=== PATIENT | female | born 1975 | race Caucasian/White ===

== ENCOUNTER → 2021-04-27 11:54 | Outpatient (CLI) | payer MEDICARE, MEDICAID, SELFPAY ==
--- NOTE | 2021-04-27 | DI.MG.S_ITS ---
UNILATERAL LEFT DIGITAL DIAGNOSTIC MAMMOGRAM 3D/2D WITH ADDITIONAL VIEWS: 04/27/2021 CLINICAL: Additional evaluation requested from prior study. Comparison is made to exam dated: 02/22/2021 mammogram - [facility]. There are scattered fibroglandular elements in left breast. There is a 0.7 cm oval equal density focal asymmetry in the left breast at 4 o'clock posterior depth. This is seen in additional views. No other significant masses or calcifications are seen in the breast. IMPRESSION: INCOMPLETE: NEEDS ADDITIONAL IMAGING EVALUATION The 0.7 cm oval equal density focal asymmetry in the left breast is indeterminate. An ultrasound is recommended. This exam was interpreted at Station ID: [id number]. NOTE: For mammograms, a report in lay terms will be sent to the patient. Approximately 15% of breast malignancies will not be visualized mammographically. In the management of a palpable breast mass, a negative mammogram must not discourage biopsy of a clinically suspicious lesion. Electronically Signed By: Carlos lozada/leroy:04/27/2021 15:21:29 ACR BI-RADS Category 0: Incomplete [id number]
--- NOTE | 2021-04-27 | DI.US.S_ITS ---
LIMITED ULTRASOUND OF LEFT BREAST: 04/27/2021 CLINICAL: Patient returns today to evaluate an asymmetry in the left breast. Comparison is made to exams dated: 04/27/2021 mammogram - [facility] and 02/22/2021 mammogram - [facility]. Color flow and continuous wave Doppler ultrasound of the left breast 4 o'clock region were performed. There is a benign 0.7 cm x 0.7 cm x 0.6 cm oval lymph node with a circumscribed margin in the left breast at 4 o'clock posterior depth 7 cm from the nipple. This oval lymph node is hypoechoic with fatty hilum. This correlates with mammography findings. IMPRESSION: BENIGN There is no sonographic evidence of malignancy. The 0.7 cm x 0.7 cm x 0.6 cm oval lymph node in the left breast is benign. Return to annual mammogram screening schedule is recommended. This exam was interpreted at Station ID: [id number]. Electronically Signed By: Carlos lozada/leroy:04/27/2021 15:23:08 letter sent: Normal Exam Ultrasound BI-RADS: 2 Benign
== END ==
PROVIDERS: Referring Provider Obstetrics & Gynecology; Visit Provider Obstetrics & Gynecology
DX: R92.8 Other abnormal and inconclusive findings on diagnostic imaging of breast (principal)
CPT/HCPCS: 76642; 77065; G0279

== ENCOUNTER → 2021-06-24 15:14 | Outpatient (CLI) | payer MEDICARE, MEDICAID, SELFPAY ==
--- NOTE | 2021-06-24 | DI.US.S_ITS ---
ULTRASOUND OF LEFT BREAST AND AXILLA: 06/24/2021 CLINICAL: Palpable left axilla lump. Comparison is made to exams dated: 04/27/2021 ultrasound, 04/27/2021 mammogram - [facility], and 02/22/2021 mammogram - [facility]. Color flow and real-time ultrasound of the left breast axilla were performed. Zimmerman scale images of the real-time examination were reviewed. There is a 2.4 cm x 0.8 cm x 0.7 cm oval normal lymph node with a circumscribed margin in the left axillary tail. This oval normal lymph node displays fatty hilum. This correlates as palpated. Color flow imaging demonstrates that there is an adjacent vascularity. Adjacent smaller node which is also benign appearing. IMPRESSION: BENIGN There is no sonographic evidence of malignancy. Benign appearing left axillary lymph nodes in the region of the palpable abnormality. Exam findings were conveyed to the patient. Patient is advised to monitor for significant change. Clinical follow-up as needed. A 1 year screening mammogram is recommended. 02/23/2022 screening mammogram. This exam was interpreted at Station ID: [id number]. Electronically Signed By: Anup Mclaughlin M.D. slc/:06/24/2021 16:20:49 letter sent: Normal Exam Ultrasound BI-RADS: 2 Benign
== END ==
PROVIDERS: PCP Family Medicine; Referring Provider Family Medicine; Visit Provider Family Medicine
DX: R59.0 Localized enlarged lymph nodes (principal)
CPT/HCPCS: 76882

== ENCOUNTER → 2021-06-29 11:48 | Outpatient (CLI) | payer MEDICARE, MEDICAID, SELFPAY ==
--- NOTE | 2021-06-29 11:51 | DI.US.S_ITS ---
PROCEDURE: US THYROID INDICATIONS: LOCALIZED SWELLING TECHNIQUE: Real-time scanning was performed of the thyroid gland, with image documentation. COMPARISON: None. FINDINGS: Right: Thyroid lobe measures 5.4 x 1.4 x 2.0 cm, and is homogeneous in echotexture. Left: Thyroid lobe measures 5.6 x 2.6 x 2.6 cm, and is homogenous in echotexture. Isthmus: 4.9 mm thick. Nodule number: 1 Location: Right midpole Size: 0.7 x 0.4 x 0.6 Composition: Predominantly cystic Echogenicity: Isoechoic Shape: wider than tall. Margins: Smooth Echogenic foci: None Total points: 1 ACR TI-RADS category: 1. Benign. Nodule number: Right lower pole Location: Right inferior pole Size: 1.7 x 1.0 x 1.4 cm. Composition: Solid Echogenicity: Isoechoic Shape: wider than tall. Margins: Smooth Echogenic foci: None Total points: 1 ACR TI-RADS category: 1. Benign. Nodule number: 3 Location: Left lower pole Size: 3.1 x 2.2 x 2.4 cm. Composition: Almost entirely solid Echogenicity: Isoechoic/anechoic Shape: wider than tall. Margins: Smooth Echogenic foci: None Total points: 3 ACR TI-RADS category: 3. Mildly suspicious. IMPRESSION: TI-RADS 3 nodule in the left inferior pole measuring 3.1 x 2.2 x 2.4 cm. Recommend fine-needle aspiration. ACR TI-RADS definitions and recommendations: TI-RADS 1 (benign): 0 points. FNA not needed. TI-RADS 2 (not suspicious): 2 points. FNA not needed. TI-RADS 3 (mildly suspicious): 3 points. * FNA if 2.5 cm or larger, follow up if 1.5 cm or larger (at 1, 3, and 5 years). TI-RADS 4 (moderately suspicious): 4-6 points. * FNA if 1.5 cm or larger, follow up if 1 cm or larger (at 1, 2, 3, and 5 years). TI-RADS 5 (highly suspicious): 7 points or more. * FNA if 1 cm or larger, follow up if 0.5 cm or larger (every year for 5 years). Dictated by: Ankush Pang M.D. on 06/29/2021 at 13:58 Approved by: Ankush Pang M.D. on 06/29/2021 at 14:14
== END ==
PROVIDERS: PCP Family Medicine; Referring Provider Family Medicine
DX: E04.2 Nontoxic multinodular goiter
CPT/HCPCS: 76536

== ENCOUNTER 2022-06-30 14:05 | Emergency (ER) | payer MEDICARE, MEDICAID, SELFPAY ==
[2022-06-30 14:11] VITALS: BP 142/107; PULSE 81; RESP 16; TEMP 36.9; O2SAT 98; BMI 40.3
--- NOTE | 2022-06-30 18:37 | ED_ITS ---
HPI - Eye Problem <Sarai Brown PA-C - Last Filed: 06/30/22 19:28> General Chief complaint: Eye Problems Stated complaint: lt eye pain/injury Time Seen by Provider: 06/30/22 16:40 History of Present Illness HPI Narrative: 46-year-old woman presents with concern for left eye pain after she was poked in the eye by finger 3 days ago. Patient states that she is been having pain with when she blinks and when she has her eyes closed and moves around, she feels like there is slight bruising of her upper eyelid and it feels tender in the area. She is worried she has a corneal abrasion. She is unsure she is had any discharge from her eye she thinks she is had a little bit of blurriness in her vision. She denies any other symptoms or complaints including headaches, eye pain with movement. Related Data Previous Rx's Medication Instructions Recorded polymyxin B sulfate 10,000 1 drp EYE-LEFT QID corneal 06/30/22 unit-trimethoprim 1 mg/mL eye drops abrasion 7 days #10 mL Allergies Allergy/AdvReac Type Severity Reaction Status Date / Time Penicillins Allergy Severe Difficulty Verified 06/30/22 18:41 Breathing Review of Systems <Sarai Brown PA-C - Last Filed: 06/30/22 19:28> Review of Systems Narrative: See HPI Exam <Sarai Brown PA-C - Last Filed: 06/30/22 19:28> Narrative Exam Narrative: GENERAL: 46 year old patient appears stated age. Well-developed patient, in mild distress, obese, anxious appearing. HEAD: Atraumatic. Normocephalic. EYES: Pupils equal round and reactive. Extraocular motions intact. No scleral icterus. There is very slight injection of the left eye, without drainage. On fluorescein exam there is a small corneal abrasion at approximately the 9 o'clock position on the left cornea. ENT: Nose without bleeding, purulent drainage. Throat without erythema, tonsillar hypertrophy or exudate. Airway patent. NECK: Trachea midline. Non tender CARDIOVASCULAR: Regular rate and rhythm without murmurs, gallops, or rubs. RESPIRATORY: Clear to auscultation. Breath sounds equal bilaterally. No wheezes, rales, or rhonchi. EXTREMITIES: No edema or joint tenderness. NEURO: AOx3. SKIN: No rash or erythema of visible areas Initial Vital Signs Initial Vital Signs: Vital Signs Temperature 98.4 F 06/30/22 14:11 Pulse Rate 81 06/30/22 14:11 Respiratory Rate 16 06/30/22 14:11 Blood Pressure 142/107 H 06/30/22 14:11 Pulse Oximetry 98 06/30/22 14:11 Oxygen Delivery Method Room Air 06/30/22 14:11 <Sherrill Barakat DO - Last Filed: 07/01/22 06:48> Initial Vital Signs Initial Vital Signs: Vital Signs Temperature 98.4 F 06/30/22 14:11 Pulse Rate 81 06/30/22 14:11 Respiratory Rate 16 06/30/22 14:11 Blood Pressure 142/107 H 06/30/22 14:11 Pulse Oximetry 98 06/30/22 14:11 Oxygen Delivery Method Room Air 06/30/22 14:11 Procedures <Sarai Brown PA-C - Last Filed: 06/30/22 19:28> [facility] Name of Procedure: Fluorescein eye exam Location: Left eye Technique/Description of procedure performed: After instillation of 2 drops of proparacaine, fluorescein strip was used to instill dye in the left eye, black light exam under magnification reveals small corneal abrasion Patient tolerated procedure: Well Complications: none Course <Sarai Brown PA-C - Last Filed: 06/30/22 19:28> Orders Ordered: Discontinued Medications Fluorescein Sodium (Fluorescein 1 Mg Strip) 1 mg EYE-BOTH NOW ONE Stop: 06/30/22 17:36 Last Admin: 06/30/22 18:40 Dose: 1 mg Documented By: AMU Proparacaine HCl (Proparacaine 0.5% Ophth Shruthi) 1 drops EYE-BOTH NOW ONE Stop: 06/30/22 17:36 Last Admin: 06/30/22 18:39 Dose: 1 drop Documented By: AMU Vital Signs Vital signs: Vital Signs - 8 hr 06/30/22 14:11 Temperature 98.4 F Pulse Rate 81 Respiratory Rate 16 Blood Pressure 142/107 H Pulse Oximetry 98 Oxygen Delivery Method Room Air <Sherrill Barakat DO - Last Filed: 07/01/22 06:48> Orders Ordered: Discontinued Medications Fluorescein Sodium (Fluorescein 1 Mg Strip) 1 mg EYE-BOTH NOW ONE Stop: 06/30/22 17:36 Last Admin: 06/30/22 18:40 Dose: 1 mg Documented By: AMU Proparacaine HCl (Proparacaine 0.5% Ophth Shruthi) 1 drops EYE-BOTH NOW ONE Stop: 06/30/22 17:36 Last Admin: 06/30/22 18:39 Dose: 1 drop Documented By: AMU Vital Signs Vital signs: Vital Signs - 8 hr 06/30/22 14:11 Temperature 98.4 F Pulse Rate 81 Respiratory Rate 16 Blood Pressure 142/107 H Pulse Oximetry 98 Oxygen Delivery Method Room Air MDM - Eye Problem <Sarai Brown PA-C - Last Filed: 06/30/22 19:28> Differential Diagnosis Differential diagnosis: Likely other (corneal abrasion) Treatment and disposition Shared decision making:: Shared decision-making was used and determine the patient's plan of care in the emergency department and plan for outpatient follow-up. MDM Narrative Medical decision making narrative: This is a well-appearing but anxious 46-year-old woman who presents with concern for possible corneal abrasion to her left eye sustained 3 days ago. Patient has been having pain under her eyelid with blinking and with her eye closed when her eye moves around. On exam patient does have very slight swelling and inflammation to the upper eyelid, on fluorescein exam she has a small corneal abrasion noted at the 9 o'clock position. Patient is placed on antibiotic drops, advised to follow up with Optometry or Ophthalmology, return precautions and ED precautions provided, follow-up plan discussed, all questions answered. Discharge Plan Departure Patient Disposition: Home Clinical Impression: Corneal abrasion Activity Restrictions/Additional Instructions: *You have been diagnosed with corneal abrasion *What to do: *Please continue to take your regular medications as directed. [1 ] New medication prescriptions sent to your pharmacy: [Antibiotic eyedrops polymyxin B sulf trimethoprim] [ ] New medication written as a paper prescription [ ] No new medications given *Please follow up with your primary care provider in 2-3 days, call for an appointment. Let them know you were seen in the Emergency Department and that we ask that you be seen in follow up. We will electronically transmit a record of today's note if your PCP is in our system. Please monitor for new or worsening symptoms, I recommend follow up with Optometry or Ophthalmology if you have persistent symptoms. *If you do not have a primary care provider please contact the [facility] Resource line at [phone]. They will ask some questions about your medical history and help get you set up with a doctor in the community. *Return to Emergency Department if you should have any new, worsening or concerning symptoms, such as [fever greater than 101 F, shaking chills, worsening pain, persistent vomiting or other bothersome symptoms] Prescriptions: New polymyxin B sulf-trimethoprim 10,000 unit- 1 mg/mL drops 1 drp EYE-LEFT QID 7 Days Qty: 10 0RF Referrals: Aba Bailey MD [Primary Care Provider] - Stand Alone Forms: Patient Portal/API <Sherrill Barakat DO - Last Filed: 07/01/22 06:48> Cosign ED Attending Clarkeature Attestation: I was immediately available in the department for consultation. Documentation has been reviewed.
[2022-06-30] MEDS: PROPARACAINE 0.5% OPHTH SOL 1 DROPS EYE-BOTH (18:39)
[2022-06-30] MEDS: FLUORESCEIN 1 MG STRIP EYE-BOTH (18:40)
== END 2022-06-30 19:32 | disposition home or self-care (01) ==
PROVIDERS: Emergency Provider Student in an Organized Health Care Education/Training Program; PCP Family Medicine
DX: S05.02XA Injury of conjunctiva and corneal abrasion without foreign body, left eye, initial encounter (principal); W50.4XXA Accidental scratch by another person, initial encounter
CPT/HCPCS: 99282

== ENCOUNTER → 2023-01-31 09:30 | Outpatient (CLI) | payer MEDICARE, MEDICAID, SELFPAY ==
--- NOTE | 2023-01-31 | DI.ECHO.S_ITS ---
Center +---------+ Hospital +---------+ : : [address] : [place] : : : : [id number] : : : : Phone: [phone] Echocardiogram Report + + :Name: KELTON ROMANO Study Date: 01/31/2023 Height: 67 in : :[facility] ReadingLocation: Weight: 225 lb : : Gender: Female BSA: 2.1 m2 : :: 1975 Age: 47 yrs BP: 148/90 mmHg: :Reason For Study: EDEMA : :Ordering Physician: MIKHAIL, : :TANK Performed By: Bobbi lAford : :Referring: TANK ELIZONDO : + + Interpretation Summary The ejection fraction is estimated to be 55-60%. There is mild mitral regurgitation. There is trace tricuspid regurgitation. Procedure: A two-dimensional transthoracic echocardiogram with color flow and Doppler was performed. The study quality was technically adequate. There is no prior echocardiogram noted for this patient. The patient was in sinus rhythm with heart rates between 70-84 bpm during the exam. Left Ventricle: The left ventricle is normal in size and wall thickness. The ejection fraction is estimated to be 55-60%. Left ventricular wall motion is normal. Right Ventricle: The right ventricle is normal in size and function. Atria: The left atrial size is normal. Right atrial size is normal. There is no Doppler evidence for an interatrial shunt. Mitral Valve: The mitral valve is normal in structure and function. There is mild mitral regurgitation. Aortic Valve: The aortic valve is trileaflet. The aortic valve opens well. There is no aortic valve stenosis. No aortic regurgitation is present. Tricuspid Valve: The tricuspid valve is normal in structure and function. There is trace tricuspid regurgitation. Pulmonic Valve: The pulmonic valve leaflets are thin and pliable; valve motion is normal. There is mild pulmonic regurgitation. Great Vessels: The aortic root is normal size. The dimensions of the ascending aorta are normal. The IVC is of normal diameter and collapses greater than 50% with a sniff. This suggests a low right atrial pressure of 3 mm Hg. Pericardium/ Pleura There is no pericardial effusion. There is no pleural effusion. MMode/2D Measurements & Calculations LVIDd: 5.2 cm LVOT diam: 2.3 cm LVIDs: 3.3 cm Ao root diam: 3.1 cm FS: 37.4 % asc Aorta Diam: 3.0 cm EPSS: 0.72 cm Ao Arch Diam (Prox Trans): 2.5 cm IVSd: 0.97 cm LVPWd: 0.85 cm LV cox. diameter/BSA (cm/m^2): 2.4 LV sys. diameter/BSA (cm/m^2): 1.5 LA A2 area: 14.6 cm2 RA long axis: 5.0 cm LA A4 area: 19.7 cm2 RA area: 13.7 cm2 LA length (vol): 5.1 cm RA vol: 31.9 ml LA vol: 48.1 ml RA : 15.0 ml/m2 LA vol index: 22.6 ml/m2 IVC diam: 1.9 cm RVD1 (basal): 3.4 cm RVD2 (mid): 3.2 cm TAPSE: 1.9 cm Doppler Measurements & Calculations Ao V2 max: 144.1 cm/sec LVOT Max Shay: 97.5 cm/sec Ao V2 mean: 109.2 cm/sec LV V1 max P.8 mmHg Ao max P.3 mmHg LV V1 VTI: 23.2 cm Ao mean P.0 mmHg REYES(I,D): 2.6 cm2 Ao V2 VTI: 37.0 cm REYES(V,D): 2.8 cm2 sev ratio: 0.63 REYES indexed to BSA (cm^2/m^2): 1.2 MV E max shay: 92.1 cm/sec PA V2 max: 121.3 cm/sec MV A max shay: 81.5 cm/sec PA V2 mean: 88.0 cm/sec MV E/A: 1.1 PA mean P.4 mmHg Med Peak E' Shay: 11.2 cm/sec PA pr(Accel): 37.9 mmHg E/E' med: 8.2 Lat Peak E' Shay: 13.4 cm/sec E/E' lat: 6.9 E/e' average: 7.5 MV dec time: 0.20 sec SV(LVOT): 95.6 ml Reading Physician:02:18 PM
== END ==
PROVIDERS: PCP Internal Medicine; Referring Provider Student in an Organized Health Care Education/Training Program; Visit Provider Student in an Organized Health Care Education/Training Program
DX: I34.0 Nonrheumatic mitral (valve) insufficiency (principal); I37.1 Nonrheumatic pulmonary valve insufficiency; R60.0 Localized edema
CPT/HCPCS: 93306

== ENCOUNTER → 2023-08-14 11:37 | Outpatient (CLI) | payer MEDICARE, MEDICAID, SELFPAY ==
--- NOTE | 2023-08-14 11:55 | EKG_ITS ---
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
[2023-08-14 12:58] LABS: Add Manual Diff / Slide Review NO; Basophils Absolute Auto 0 /uL (0-100); Basophils Percent Auto 0.5 % (0-2); Eosinophils Absolute Auto 100 /uL (0-450); Eosinophils Percent Auto 1.5 % (2-4); Hematocrit 38.2 % (36-46); Hemoglobin 13.3 g/dL (12.0-16.0); Lymphocytes Absolute Auto 1800 /uL (1100-4500); Lymphocytes Percent Auto 27.4 % (25-40); Mean Corpuscular HGB Conc 34.7 % (30-36); Mean Corpuscular Hemoglobin 30.4 PG (26-34); Mean Corpuscular Volume 87.6 fL (80-100); Monocytes Absolute Auto 400 /uL (0-900); Monocytes Percent Auto 6.6 % (3-14); Neutrophils Absolute Auto 4200 /uL (1500-7000); Platelet Count 251 X10^3/uL (150-400); Red Blood Cell Count 4.36 X10^6/uL (4.0-5.2); Red Cell Distribution Width 12.8 % (11.6-14.8); White Blood Cell Count 6.5 X10^3/uL (4.5-11.0)
[2023-08-14 13:26] LABS: BUN Creatinine Ratio 22.9 (6-22); Blood Urea Nitrogen 16 mg/dL (7-17); Calcium 9.2 mg/dL (8.4-10.2); Carbon Dioxide 28 mmol/L (22-32); Chloride 104 mmol/L (98-107); Estimated Glomerular Filt Rate > 60 mL/min (>60); Glucose 92 mg/dL (70-100); HEMOLYSIS < 15 (0-50); Potassium 4.9 mmol/L (3.4-5.1); Sodium 137 mmol/L (137-145)
== END ==
PROVIDERS: PCP Internal Medicine; Referring Provider Orthopaedic Surgery; Visit Provider Orthopaedic Surgery
DX: Z01.818 Encounter for other preprocedural examination (principal); Z01.812 Encounter for preprocedural laboratory examination
CPT/HCPCS: 36415; 80048; 85025; 93005

== ENCOUNTER → 2023-09-17 10:36 | Outpatient (CLI) | payer MEDICARE, MEDICAID, SELFPAY ==
--- NOTE | 2023-09-17 12:30 | DI.MRI.S_ITS ---
PROCEDURE: MR CERVICAL SPINE WO CON INDICATIONS: CERVICAL RADICULOPATHY TECHNIQUE: Noncontrast sagittal T1 spin echo and T2 fast spin echo, sagittal STIR, foraminal oblique sagittal T2 fast spin echo, and axial gradient echo or T2 fast spin echo through the cervical spine. COMPARISON: [facility], US, US THYROID, 06/29/2021, 12:24. [facility], CR, XR CERVICAL SPINE WITH OBLIQUES, 07/19/2020, 15:14. FINDINGS: Image quality: Excellent. Alignment and Curvature: There is normal bony alignment. Bone Marrow: Marrow demonstrates normal overall signal. There is mild reactive signal within the endplates adjacent to the C5-C6 intervertebral disc. Spinal Cord: Visualized spinal cord has normal size and signal. No cerebellar tonsillar herniation. Paraspinous Soft Tissues: Bilateral thyroid masses are present, largest of which is in the left lobe measuring 26 mm. Prevertebral soft tissues are normal in thickness. C2-C3: Normal appearance. C3-C4: Mild disc desiccation. Mild facet and uncovertebral hypertrophy. No significant canal stenosis. Mild bilateral foraminal stenosis. C4-C5: Normal appearance. C5-C6: Moderate disc desiccation. Mild disc height loss and diffuse disc bulge. Mild facet and uncovertebral hypertrophy bilaterally. Mild canal stenosis. Mild bilateral foraminal stenosis. C6-C7: Normal appearance. C7-T1: Normal appearance. IMPRESSION: 1. Mild multilevel degenerative disc and facet disease, as well as uncovertebral hypertrophy, causing mild canal and foraminal stenosis as above. No neural impingement. 2. Bilateral thyroid masses as seen by prior ultrasound. Dictated by: Deepa Braun M.D. on 09/17/2023 at 13:46 Approved by: Deepa Braun M.D. on 09/17/2023 at 13:52
== END ==
PROVIDERS: PCP Internal Medicine; Referring Provider Physical Medicine & Rehabilitation; Visit Provider Physical Medicine & Rehabilitation
DX: M50.11 Cervical disc disorder with radiculopathy, high cervical region (principal); M47.22 Other spondylosis with radiculopathy, cervical region; M48.02 Spinal stenosis, cervical region; E04.9 Nontoxic goiter, unspecified
CPT/HCPCS: 72141

== ENCOUNTER 2023-09-18 06:13 | Day surgery (SDC) | payer MEDICARE, MEDICAID, SELFPAY ==
[2023-09-11 15:27] VITALS: BMI 41.2
[2023-09-18] VITALS (9 sets, daily range): BP systolic 126–145; BP diastolic 71–84; PULSE 65–80; RESP 11–19; TEMP 36–36.3; O2SAT 96–100; BMI 41.2
[2023-09-18] MEDS: ACETAMINOPHEN 325 MG TABLET 975 MG PO (07:20)
[2023-09-18] MEDS: LACTATED RINGERS 1,000 ML 42 ML IV (07:21)
[2023-09-18] MEDS: ALBUTEROL/IPRATROPIUM 3 ML AMPUL INH (07:21)
[2023-09-18] MEDS: SCOPOLAMINE 1 PATCH TOP (07:21)
--- NOTE | 2023-09-18 07:29 | PM.PREOP ---
Pre-operative Note Interval Note History & Physical reviewed/Exam performed by Physician: Yes Changes to H&P: No
[2023-09-18] MEDS: CLINDAMYCIN 900 MG in SODIUM CHLORIDE 0.9% 100 ML 106 MG IV (08:00)
--- NOTE | 2023-09-18 08:09 | SUR.OPER ---
Supine on padded OR bed, head on pillow, arms secured on padded arm boards at <90 degrees abduction. Non-operative leg on well leg rubio with gel pad, operative leg secured in arthroscopy leg rubio over tourniquet. Leg section of bed dropped so legs are gangling. Operative leg under control of surgeon.
[2023-09-18] MEDS: BUPIVACAINE 0.5% (PF) 30 ML, EPINEPHrine 0.15 MG INJ (08:20)
[2023-09-18] MEDS: OXYCODONE IR 5 MG TABLET PO ×2 (08:48→09:17)
[2023-09-18] MEDS: ONDANSETRON 4 MG/2 ML INJ IV (08:48)
[2023-09-18] MEDS: LORazepam 2 MG/ML INJ 0.5 MG IV (09:08)
[2023-09-18] MEDS: KETOROLAC 30 MG/ML VIAL IV (09:27)
--- NOTE | 2023-09-18 14:51 | PM.OP.1 ---
Operative Date/Time/Diagnoses Date of procedure: 09/18/23 Time of procedure: 07:50 Pre-op diagnosis: Left knee medial meniscus tear Post-op diagnosis: same Procedure & Clinicians Procedure: Left knee arthroscopies with partial medial meniscectomy Same procedure as scheduled: Yes Indications: This is a 47-year-old female with a history of intermittent knee popping and locking. She failed extensive conservative treatment and is brought to the operating room for a left knee arthroscopy with repair as indicated. Her preoperative workup showed an MRI scan which showed a posterior horn medial meniscus tear. The limits of the procedure options risks benefits and complications were reviewed in detail. We did discuss the limits of arthroscopy to help with some knee pain especially if she has some patellofemoral arthritic change. She notes constant pain in his interested in pursuing arthroscopic treatment. 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 She was given IV antibiotics. A time-out was performed. Her left lower extremity was prepped draped in standard sterile fashion after the induction of general anesthesia. Parapatellar superior portal was placed. The knee was insufflated slightly in the lateral parapatellar portal was placed. Scope was inserted. 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 There was an area of grade 2 chondromalacia on the medial femoral condyle with minimal change on the tibial plateau the notch had a normal ACL in the lateral compartment was within normal limits. The knee was meticulously scoped. The medial meniscus was resected back to stable meniscal rim. There was some small areas of loose articular cartilage which were gently debrided. Knee was carefully irrigated. The portals were closed with interrupted nylon. Marcaine was injected. The wound was closed sterilely. Complications none. Complications: none Post-operative Condition: stable Disposition: same day surgery Plan for aftercare: Weight-bearing as tolerated on the left lower extremity. Okay to begin quad strengthening exercises. Fall precautions. Start outpatient physical therapy to work on progressive quad strengthening especially the VMO.
== END 2023-09-18 10:23 | disposition home or self-care (01) ==
PROVIDERS: PCP Internal Medicine; Referring Provider Orthopaedic Surgery; Visit Provider Orthopaedic Surgery
PROC: (CPT 29870; principal; 2023-09-18 07:45)
DX: S83.232A Complex tear of medial meniscus, current injury, left knee, initial encounter (principal); M94.262 Chondromalacia, left knee
CPT/HCPCS: 29881; 82962; J0171; J0330; J0736; J1100; J1170; J1885; J2060; J2405; J2704; J3010

== ENCOUNTER 2024-05-30 12:27 | Emergency (ER) | payer MEDICARE, MEDICAID, SELFPAY ==
[2024-05-30] VITALS (17 sets, daily range): BP systolic 136–165; BP diastolic 64–87; PULSE 66–87; RESP 16–28; TEMP 37.1–37.5; O2SAT 95–98; BMI 44.4
--- NOTE | 2024-05-30 12:39 | DI.RAD.S_ITS ---
PROCEDURE: XR CHEST 1V INDICATIONS: Shortness of breath TECHNIQUE: One view of the chest was acquired. COMPARISON: None. FINDINGS: Surgical changes and devices: None. Lungs and pleura: Lungs are clear. No pleural effusions or pneumothorax. Mediastinum: Mediastinal contours appear normal. Heart size is normal. Bones and chest wall: No suspicious bony lesions. Overlying soft tissues appear unremarkable. IMPRESSION: No acute cardiopulmonary pathology. Dictated by: Enrico Espino M.D. on 05/30/2024 at 13:22 Approved by: Enrico Espino M.D. on 05/30/2024 at 13:31
--- NOTE | 2024-05-30 12:44 | EKG_ITS ---
[address] [address] Test Date: 2024-05-30 Pat Name: Kari Mcfadden Department: 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
[2024-05-30 12:56] LABS: Add Manual Diff / Slide Review NO; Basophils Absolute Auto 0 /uL (0-100); Basophils Percent Auto 0.6 % (0-2); Eosinophils Absolute Auto 100 /uL (0-450); Eosinophils Percent Auto 2.5 % (2-4); Hematocrit 37.5 % (36-46); Hemoglobin 13.1 g/dL (12.0-16.0); Lymphocytes Absolute Auto 1600 /uL (1100-4500); Lymphocytes Percent Auto 27.7 % (25-40); Mean Corpuscular HGB Conc 34.8 % (30-36); Mean Corpuscular Hemoglobin 29.8 PG (26-34); Mean Corpuscular Volume 85.6 fL (80-100); Monocytes Absolute Auto 400 /uL (0-900); Monocytes Percent Auto 7.6 % (3-14); Neutrophils Absolute Auto 3500 /uL (1500-7000); Neutrophils Percent Auto 61.6 % (50-75); Platelet Count 246 X10^3/uL (150-400); Red Blood Cell Count 4.38 X10^6/uL (4.0-5.2); Red Cell Distribution Width 13.4 % (11.6-14.8); White Blood Cell Count 5.7 X10^3/uL (4.5-11.0)
--- NOTE | 2024-05-30 13:00 | PC.NURSE ---
Pt sitting upright in gurney. Speaking in full sentences but trails off feeling SOB. Having a hard time catching breath. Pt states that she has a hard time walking in house without having a hard time breathing. VSS.
[2024-05-30 13:04] LABS: INR 1.1 (0.9-1.3); Prothrombin Time 12.5 SECONDS (9.4-12.5)
[2024-05-30 13:10] LABS: Alanine Aminotransferase 25 IU/L (<35); Albumin 4.4 g/dL (3.5-5.0); Albumin Globulin Ratio 1.8 (1.0-2.8); Alkaline Phosphatase 57 U/L (38-126); Aspartate Aminotransferase 31 IU/L (14-36); BUN Creatinine Ratio 8.8 (6-22); Bilirubin Total 0.4 mg/dL (0.2-1.3); Blood Urea Nitrogen 7 mg/dL (7-17); Carbon Dioxide 24 mmol/L (22-32); Chloride 105 mmol/L (98-107); Estimated Glomerular Filt Rate > 60 mL/min (>60); Globulin 2.5 g/dL (1.7-4.1); Glucose 128 mg/dL (70-100); HEMOLYSIS < 15 (0-50); Lactate (Lactic Acid) 1.1 mmol/L (0.7-2.1); Potassium 3.8 mmol/L (3.4-5.1); Sodium 139 mmol/L (137-145); Total Protein 6.9 g/dL (6.3-8.2)
--- NOTE | 2024-05-30 13:19 | ED_ITS ---
HPI - SOB/Dyspnea General Chief Complaint: Shortness of Breath/Dyspnea Stated Complaint: sob, swelling gained 20 lbs , body aches Time Seen by Provider: 05/30/24 13:12 Source: patient Mode of arrival: Ambulatory Limitations: no limitations History of Present Illness HPI Narrative: Patient here for 20 lb weight gain in the past 1 week. Complains of shortness of breath as well. Has body wide swelling. No calf pain. No chest pain. No recent changes in medications. Patient is adopted and does not know very much of family medical history. Patient denies any history of heart attack strokes or diabetes. Denies any history of blood clots in legs or lungs. No recent long travel of foreign travel or sick contacts. Patient at times has choking episodes with eating/trouble swallowing. Patient is monitored by primary care Dr. Villalobos for enlarging thyroid but is not on medications for it. Related Data Home Medications Medication Instructions Recorded Confirmed albuterol sulfate 90 mcg/actuation 2 puff inhalation Q6H PRN 12/05/22 09/18/23 aerosol inhaler Shortness Of Breath atenolol 50 mg tablet 25 mg PO BID 12/05/22 09/18/23 methocarbamol 500 mg tablet 500 mg PO TID 12/05/22 09/18/23 oxycodone-acetaminophen 5 mg-325 1 tab PO QID PRN Pain 12/05/22 09/18/23 mg tablet (Percocet) rosuvastatin 20 mg tablet 20 mg PO DAILY 12/05/22 09/18/23 ondansetron 4 mg disintegrating 4 mg PO Q6-8H PRN Nausea 06/01/23 09/18/23 tablet promethazine 25 mg tablet 25 mg PO Q8H PRN Nausea 06/01/23 09/18/23 Allergies Allergy/AdvReac Type Severity Reaction Status Date / Time Penicillins Allergy Severe Difficulty Verified 09/18/23 06:41 Breathing morphine Allergy Verified 09/18/23 06:41 Review of Systems Review of Systems Narrative: GENERAL: Negative chills, fatigue, malaise, fever, sweats., positive weight change HEENT: Negative sinus pain, ear pain, sore throat RESPIRATORY: Positive dyspnea, negative cough CARDIOVASCULAR: Negative chest pain, palpitations, positive limb edema GASTROINTESTINAL: Negative vomiting, nausea, abdominal pain : Negative dysuria, frequency, hematuria MUSCULOSKELETAL: Negative muscle or bony pain SKIN: Negative rash, skin lesions NEUROLOGIC: Negative weakness, numbness ROS Unobtainable: All systems reviewed & are unremarkable except as noted in HPI and below Patient History Medical History (Updated 05/30/24 @ 17:44 by Sachin Butcher MD) Arrhythmia Concussion IBD (inflammatory bowel disease) Asthma Fibromyalgia Fluttering heart Obesity, Class II, BMI 35-39.9 PCOS (polycystic ovarian syndrome) Psoriasis Arthritis Renal artery aneurysm rupture Intractable nausea and vomiting Dysmenorrhea Abnormal uterine bleeding (AUB) Surgical History (Updated 09/11/23 @ 15:28 by Nadine Burgos RN) History of nasal surgery History of appendectomy Social History Smoking Status: Never smoker alcohol intake: never Smoking Status: Never smoker Exam Narrative Exam Narrative: GENERAL: in no distress, not toxic not dyspneic HEAD: Normocephalic. EYES: Pupils equal round ENT: Mucous membranes moist. NECK: Trachea midline. CARDIOVASCULAR: Regular rate and rhythm RESPIRATORY: Clear to auscultation. Breath sounds equal bilaterally. No wheezes, rales, or rhonchi. GASTROINTESTINAL: Abdomen soft, non-tender EXTREMITIES: No gross deformities. Grossly symmetric bilateral arms and legs. No calf tenderness. No palpable cords. Negative Homans test negative Loyd test. No pitting edema of the ankles or feet. BACK: No flank tenderness. NEURO: AOx4. Clear speech SKIN: Warm and dry PSYCH: Not anxious, is cooperative Initial Vital Signs Initial Vital Signs: Vital Signs Temperature 99.5 F 05/30/24 12:36 Pulse Rate 87 05/30/24 12:36 Respiratory Rate 18 05/30/24 12:36 Blood Pressure 165/80 H 05/30/24 12:36 Pulse Oximetry 97 05/30/24 12:36 Oxygen Delivery Method Room Air 05/30/24 12:36 Course Orders Ordered: ED Orders 05/30/24 12:39 XR chest 1V Stat EKG-12 Lead Stat Measure peak expiratory flow ONCE RT Consult Eval and Treat NOW 05/30/24 12:45 Complete Blood Count AUTO DIFF Stat Comprehensive Metabolic Panel Stat Lactate (Lactic Acid) Stat NT-proBNP (BNP-Adult 18+) Stat Prothrombin Time INR Stat TSH [Thyroid Stimulating Hormone] Stat Troponin I Stat 05/30/24 13:18 CT abdomen pelvis w con Stat CT angio chest PE protocol Stat Vital Signs Vital signs: Vital Signs - 8 hr 05/30/24 12:36 05/30/24 12:50 05/30/24 12:52 Temperature 99.5 F Pulse Rate 87 86 Respiratory Rate 18 23 Blood Pressure 165/80 H 144/64 H Pulse Oximetry 97 98 Oxygen Delivery Method Room Air 05/30/24 12:52 05/30/24 13:00 05/30/24 13:01 Temperature Pulse Rate 83 85 Respiratory Rate 19 27 H Blood Pressure 157/74 H Pulse Oximetry 97 96 Oxygen Delivery Method Room Air 05/30/24 13:01 05/30/24 13:34 05/30/24 13:35 Temperature Pulse Rate 84 86 Respiratory Rate 25 H 28 H Blood Pressure 159/73 H Pulse Oximetry 96 97 Oxygen Delivery Method 05/30/24 13:35 05/30/24 14:00 05/30/24 14:01 Temperature Pulse Rate 80 70 Respiratory Rate 20 25 H Blood Pressure 141/66 H Pulse Oximetry 97 96 Oxygen Delivery Method 05/30/24 14:01 05/30/24 14:30 05/30/24 14:30 Temperature Pulse Rate 68 71 Respiratory Rate 19 Blood Pressure 136/72 Pulse Oximetry 96 96 Oxygen Delivery Method MDM - SOB/Dyspnea Lab Data 05/30/24 12:45 05/30/24 12:45 Labs: Lab Results 05/30/24 Range/Units 12:45 WBC 5.7 (4.5-11.0) X10^3/uL RBC 4.38 (4.0-5.2) X10^6/uL Hgb 13.1 (12.0-16.0) g/dL Hct 37.5 (36-46) % MCV 85.6 (80-100) fL MCH 29.8 (26-34) PG MCHC 34.8 (30-36) % RDW 13.4 (11.6-14.8) % Plt Count 246 (150-400) X10^3/uL Neut % (Auto) 61.6 (50-75) % Lymph % (Auto) 27.7 (25-40) % Garrett % (Auto) 7.6 (3-14) % Eos % (Auto) 2.5 (2-4) % Baso % (Auto) 0.6 (0-2) % Neut # (Auto) 3500 (8055-3026) /uL Lymph # (Auto) 1600 (5060-5379) /uL Garrett # (Auto) 400 (0-900) /uL Eos # (Auto) 100 (0-450) /uL Baso # (Auto) 0 (0-100) /uL PT 12.5 (9.4-12.5) SECONDS INR 1.1 (0.9-1.3) Sodium 139 (137-145) mmol/L Potassium 3.8 (3.4-5.1) mmol/L Chloride 105 (98-107) mmol/L Carbon Dioxide 24 (22-32) mmol/L BUN 7 (7-17) mg/dL Creatinine 0.80 (0.52-1.04) mg/dL Estimated GFR > 60 (>60) mL/min BUN/Creatinine Ratio 8.8 (6-22) Glucose 128 H (70-100) mg/dL Lactate 1.1 (0.7-2.1) mmol/L Calcium 9.0 (8.4-10.2) mg/dL Total Bilirubin 0.4 (0.2-1.3) mg/dL AST 31 (14-36) IU/L ALT 25 (<35) IU/L Alkaline Phosphatase 57 (38-126) U/L Troponin I < 0.012 (0.01-0.034) ng/mL NT-Pro-B Natriuret Pep 131 H (<125) pg/mL Total Protein 6.9 (6.3-8.2) g/dL Albumin 4.4 (3.5-5.0) g/dL Globulin 2.5 (1.7-4.1) g/dL Albumin/Globulin Ratio 1.8 (1.0-2.8) TSH 0.855 (0.47-4.68) uIU/mL Imaging Data Chest x-ray: Radiologist's Impression: [address] [address] XRay Report Signed Patient: Kari Mcfadden MR#: [id number] : 1975 Acct:[id number] Age/Sex: 48 / F Date of Service: 05/30/24 Loc: ED Accession Number: [id number] Procedure: XR chest 1V Ordering Provider: Sachin Butcher MD PROCEDURE: XR CHEST 1V INDICATIONS: Shortness of breath TECHNIQUE: One view of the chest was acquired. COMPARISON: None. FINDINGS: Surgical changes and devices: None. Lungs and pleura: Lungs are clear. No pleural effusions or pneumothorax. Mediastinum: Mediastinal contours appear normal. Heart size is normal. Bones and chest wall: No suspicious bony lesions. Overlying soft tissues appear unremarkable. IMPRESSION: No acute cardiopulmonary pathology. Dictated by: Enrico Espino M.D. on 05/30/2024 at 13:22 Approved by: Enrico Espino M.D. on 05/30/2024 at 13:31 CT scan - chest: Radiologist's Impression: [place] [address] CT Scan Report Signed Patient: Kari Mcfadden MR#: [id number] : 1975 Acct:[id number] Age/Sex: 48 / F Date of Service: 05/30/24 Loc: ED Accession Number: [id number] Procedure: CT angio chest PE protocol Ordering Provider: Sachin Butcher MD PROCEDURE: CT ANGIO CHEST PE PROTOCOL INDICATIONS: Dyspnea TECHNIQUE: After the administration of intravenous contrast, 2 mm thick sections acquired from the pulmonary apices to the posterior costophrenic angles. 3-dimensional maximum intensity projection (MIP) coronal and sagittal reformats were then acquired through the thorax. For radiation dose reduction, the following was used: automated exposure control, adjustment of mA and/or kV according to patient size. COMPARISON: None. FINDINGS: Image quality: Diagnostic. Pulmonary arteries: Pulmonary arteries are normal in size, and demonstrate no intraluminal filling defects to suggest central pulmonary embolism. Bilateral distal subsegmental pulmonary artery branches are suboptimally opacified. Lower Neck: No enlarged lymph nodes. Thyroid: No thyroid nodules which require sonographic follow up, per consensus guidelines. Axillae: No enlarged lymph nodes. Chest Wall: Unremarkable. Bones: Unremarkable. Lungs and Pleura: No pneumothorax or pleural effusions. Mild ground-glass opacities are seen in bilateral lung castillo. No consolidation or suspicious nodules. Heart: Heart size is mildly enlarged. No pericardial effusion. Thoracic Vessels: No aortic aneurysm. Mediastinum and Janeth: No enlarged lymph nodes. Esophagus: No wall thickening. Small hiatal hernia. Upper Abdomen: Please correlate with CT of abdomen and pelvis findings from the same day. IMPRESSION: 1. No central pulmonary emboli. Bilateral distal subsegmental pulmonary artery branches are suboptimally opacified. No thoracic aortic aneurysm or dissection. 2. Hazy ground-glass opacity in bilateral lung castillo suggestive of mild pulmonary edema versus pneumonitis. No focal infiltrate, pleural effusion or pneumothorax. 3. No mediastinal or hilar lymphadenopathy. Small hiatal hernia. Dictated by: Enrico Espino M.D. on 05/30/2024 at 14:05 Approved by: Enrico Espino M.D. on 05/30/2024 at 14:07 CT scan - abdomen/pelvis: Radiologist's Impression: [address] [address] [address] Scan Report Signed Patient: Kari Mcfadden MR#: [id number] : 1975 Acct:[id number] Age/Sex: 48 / F Date of Service: 05/30/24 Loc: ED Accession Number: [id number] Procedure: CT abdomen pelvis w con Ordering Provider: Sachin Butcher MD PROCEDURE: CT ABDOMEN PELVIS W CON INDICATIONS: IV contrast only/abdominal pain TECHNIQUE: After the administration of intravenous contrast, axial sections acquired from the lung bases to the pubic symphysis. Coronal and sagittal reformats were performed. For radiation dose reduction, the following was used: automated exposure control, adjustment of mA and/or kV according to patient size. COMPARISON: None. FINDINGS: Image quality: Diagnostic Lower chest: Unremarkable lung bases. Heart size is at the upper limit of normal. Liver: Hepatomegaly at 21 cm. Gallbladder and biliary system: Unremarkable, nondilated Pancreas: No ductal dilation. Mild parenchymal atrophy Spleen: Borderline enlarged spleen at 13 cm Adrenals: No discrete nodules Kidneys: No hydronephrosis or solid renal mass. Vessels and lymph nodes: The main portal vein is patent. No abdominal aortic aneurysm. No pathologic lymphadenopathy by size criteria Bowel and peritoneum: No small bowel obstruction. No pathologic ascites or drainable abscess. Questionable mild distal colonic wall thickening. Body wall: Small fat containing umbilical hernia Pelvis: Bladder is unremarkable. Reproductive organs appear physiologic on limited CT evaluation. Bones: No aggressive appearing osseous abnormality. There are degenerative changes. IMPRESSION: Possible mild distal colitis versus artifact of under distention, otherwise no acute abdominal pelvic abnormality. Hepatomegaly and borderline splenomegaly. Other findings above. Dictated by: Jerome Garcia M.D. on 05/30/2024 at 13:43 Approved by: Jerome Garcia M.D. on 05/30/2024 at 13:49 [facility] Narrative Medical decision making narrative: Patient here for 20 lb weight gain in the past 1 week. Complains of shortness of breath as well. Has body wide swelling. No calf pain. No chest pain. No recent changes in medications. Patient is adopted and does not know very much of family medical history. Patient denies any history of heart attack strokes or diabetes. Denies any history of blood clots in legs or lungs. No recent long travel of foreign travel or sick contacts. Patient at times has choking episodes with eating/trouble swallowing. Patient is monitored by primary care Dr. Villalobos for enlarging thyroid but is not on medications for it. After history and exam, CBC CMP troponin BNP EKG chest x-ray TSH CT chest abdomen pelvis [facility] Medical records reviewed: No recent visit for this complaint Differential considered: Includes but not limited to pulmonary embolism CHF hypothyroidism, thyroid storm/crisis Lab Test results independently reviewed as above. Pertinent findings: WBC 5.7 hemoglobin 13.1 hematocrit 37.5 INR 1.1 sodium 139 potassium 3.8 BUN 7 creatinine 0.8 GFR greater than 60 lactate 1.1 troponin less than 0.012 BNP 131 Independently reviewed EKG normal sinus rhythm normal EKG rate 85 Imaging studies independently reviewed: Chest x-ray no acute finding CT chest no acute finding Consultations: None indicated at this time Re-evaluations: 5:45 p.m.. Patient in no distress. Speaking full sentences comfortably. Not requiring supplemental oxygen. Reviewed results with patient and her friend. Source of swelling shortness of breath uncertain at this time but is stable for discharge home. She agrees and desires discharge home. She has appointment with her primary care next Sunday. No new prescriptions are indicated this time. Return precautions reviewed. They desire discharge home. Discussion: Appropriate for discharge home exam is reassuring. Return precautions reviewed with patient and friend. Patient not requiring supplemental oxygen. Appropriate for follow up next Sunday as scheduled with primary care. Diagnosis: Dyspnea Discharge Plan Departure Patient Disposition: Home Clinical Impression: Dyspnea Qualifiers: Dyspnea type: unspecified Qualified Code(s): R06.00 - Dyspnea, unspecified Instructions: DI for Shortness of Breath Activity Restrictions/Additional Instructions: Your exam and laboratory studies and imaging studies are reassuring today. Please see your family doctor next Sunday as scheduled for re-evaluation. At this time source of your swelling still needs to be established and re-evaluated by your primary care provider. No new medications are indicated at this time. Return if worse if any questions or concerns Prescriptions: No Action promethazine 25 mg tablet 25 mg PO Q8H PRN (Reason: Nausea) ondansetron 4 mg tablet,disintegrating 4 mg PO Q6-8H PRN (Reason: Nausea) methocarbamol 500 mg tablet 500 mg PO TID atenolol 50 mg tablet 25 mg PO BID oxycodone-acetaminophen [Percocet] 5-325 mg tablet 1 tab PO QID PRN (Reason: Pain) rosuvastatin 20 mg tablet 20 mg PO DAILY albuterol sulfate 90 mcg/actuation HFA aerosol inhaler 2 puff inhalation Q6H PRN (Reason: Shortness Of Breath) Referrals: Goran Villalobos MD [Primary Care Provider] - Stand Alone Forms: Patient Portal/API/Survey
[2024-05-30 13:22] LABS: NT-proBNP (BNP-Adult 18+) 131 pg/mL (<125); Troponin I < 0.012 ng/mL (0.01-0.034)
[2024-05-30 14:10] LABS: Thyroid Stimulating Hormone 0.855 uIU/mL (0.47-4.68)
== END 2024-05-30 17:51 | disposition home or self-care (01) ==
PROVIDERS: Emergency Provider Emergency Medicine; PCP Internal Medicine
DX: R06.00 Dyspnea, unspecified (principal); R63.5 Abnormal weight gain; Z68.41 Body mass index [BMI] 40.0-44.9, adult; R60.9 Edema, unspecified
CPT/HCPCS: 36415; 71045; 71275; 74177; 80053; 83605; 83880; 84443; 84484; 85025; 85610; 93005; 93010; 99283; 99284; Q9967

== ENCOUNTER → 2024-06-26 13:38 | Outpatient (CLI) | payer MEDICARE, MEDICAID, SELFPAY ==
--- NOTE | 2024-06-26 13:40 | DI.ECHO.S_ITS ---
[place] [facility] : : [address] : [place] : : [id number] : : Phone: [phone] Echocardiogram Report + + :Name: KELTON ROMANO Study Date: 06/26/2024 Height: 68 in : :[facility] ReadingLocation: Weight: 279 lb : : Gender: Female BSA: 2.4 m2 : :: 1975 Age: 48 yrs BP: 139/78 mmHg: :Reason For Study: DYSPNEA : :Ordering Physician: MIKHAIL, : :TANK Performed By: Bobbi Alford : :Referring: TANK ELIZONDO : + + Interpretation Summary The left ventricle is normal in size and wall thickness. Left ventricular systolic function appears normal without focal wall motion abnormalities. The ejection fraction is estimated to be 60-65%. Diastolic parameters suggest probable normal left ventricular diastolic function and normal filling pressures. The right ventricle is normal in size and function. Pulmonary artery pressures cannot be estimated because of the lack of a measurable TR jet velocity but the IVC suggests a CVP of around 3 mmHg. The left atrial size is normal. There is no significant valvular heart disease. The aortic root is normal size. No significant difference since 01/31/2023. Procedure: A two-dimensional transthoracic echocardiogram with color flow and Doppler was performed. The study quality was technically adequate. Comparison is made with the echocardiogram of 01/31/2023. The patient was in sinus rhythm with heart rates between 72-89 bpm during the exam. Left Ventricle: The left ventricle is normal in size and wall thickness. Left ventricular systolic function appears normal without focal wall motion abnormalities. The ejection fraction is estimated to be 60-65%. Diastolic parameters suggest probable normal left ventricular diastolic function and normal filling pressures. Right Ventricle: The right ventricle is normal in size and function. Atria: The left atrial size is normal. Right atrial size is normal. There is no Doppler evidence for an interatrial shunt. Mitral Valve: The mitral valve leaflets appear to open well. There is trace mitral regurgitation. Aortic Valve: The aortic valve is trileaflet. The aortic valve opens well. There is no aortic valve stenosis. No aortic regurgitation is present. Tricuspid Valve: The tricuspid valve leaflets are thin and pliable. No tricuspid regurgitation. Pulmonary artery pressures cannot be estimated because of the lack of a measurable TR jet velocity but the IVC suggests a CVP of around 3 mmHg. Pulmonic Valve: The pulmonic valve leaflets are thin and pliable; valve motion is normal. There is no pulmonic valvular regurgitation. There is no significant valvular heart disease. Great Vessels: The aortic root is normal size. The dimensions of the ascending aorta are normal. The IVC is of normal diameter and collapses greater than 50% with a sniff. This suggests a low right atrial pressure of 3 mm Hg. Pericardium/ Pleura There is no pericardial effusion. There is no pleural effusion. MMode/2D Measurements & Calculations LVIDd: 5.3 cm LVOT diam: 2.2 cm LVIDs: 3.6 cm Ao root diam: 3.0 cm FS: 32.6 % asc Aorta Diam: 2.9 cm IVSd: 0.98 cm Ao Arch Diam (Prox Trans): 2.7 cm LVPWd: 0.96 cm LV cox. diameter/BSA (cm/m^2): 2.3 LV sys. diameter/BSA (cm/m^2): 1.5 LA A2 area: 20.2 cm2 RA long axis: 4.8 cm LA A4 area: 16.2 cm2 RA area: 12.8 cm2 LA length (vol): 5.0 cm RA vol: 29.5 ml LA vol: 55.7 ml RA : 12.5 ml/m2 LA vol index: 23.6 ml/m2 IVC diam: 1.2 cm RVD1 (basal): 4.0 cm TAPSE: 2.6 cm Doppler Measurements & Calculations Ao V2 max: 171.7 cm/sec LVOT Max Shay: 109.6 cm/sec Ao V2 mean: 108.8 cm/sec LV V1 max P.8 mmHg Ao max P.8 mmHg LV V1 VTI: 22.4 cm Ao mean P.5 mmHg REYES(I,D): 2.6 cm2 Ao V2 VTI: 31.9 cm REYES(V,D): 2.4 cm2 sev ratio: 0.70 REYES indexed to BSA (cm^2/m^2): 1.1 MV E max shay: 89.6 cm/sec PA V2 max: 124.1 cm/sec MV A max shay: 76.7 cm/sec PA V2 mean: 86.1 cm/sec MV E/A: 1.2 PA mean P.4 mmHg Med Peak E' Shay: 10.2 cm/sec E/E' med: 8.8 Lat Peak E' Shay: 13.1 cm/sec E/E' lat: 6.9 E/e' average: 7.8 MV dec time: 0.18 sec SV(LVOT): 82.9 ml Reading Physician:03:47 PM
== END ==
LOC: ECHO 13:39
PROVIDERS: PCP Internal Medicine; Referring Provider Student in an Organized Health Care Education/Training Program; Visit Provider Student in an Organized Health Care Education/Training Program
DX: R06.09 Other forms of dyspnea (principal)
CPT/HCPCS: 93306

== ENCOUNTER 2024-07-10 05:55 | Emergency (ER) | payer MEDICARE, MEDICAID, SELFPAY ==
[2024-07-10] VITALS (10 sets, daily range): BP systolic 147–181; BP diastolic 65–89; PULSE 81–95; RESP 16–28; TEMP 36.1–36.7; O2SAT 94–97; BMI 43.3
--- NOTE | 2024-07-10 06:09 | DI.CT.S_ITS ---
PROCEDURE: CT ANGIO HEAD AND NECK INDICATIONS: headache, s/p C5/C6 injection TECHNIQUE: After the administration of intravenous contrast, 1 mm thick sections acquired from the aortic arch through the [place] of [place]. 3-dimensional gessmex-kervogawj-rthbdoibvu (MIP) and/or volume rendering reformats were acquired of the central intracranial vasculature and neck separately. For radiation dose reduction, the following was used: automated exposure control, adjustment of mA and/or kV according to patient size. COMPARISON: None. FINDINGS: Image quality: Diagnostic. Cerebral CT Angiogram: Internal carotid arteries: No acute findings. Intracranial ICA are patent with no significant stenosis. No occlusion. No aneurysm. Anterior cerebral arteries: Unremarkable. No significant stenosis. No occlusion. No aneurysm. Middle cerebral arteries: Unremarkable. No significant stenosis. No occlusion. No aneurysm. Posterior cerebral arteries: Unremarkable. No significant stenosis. No occlusion. No aneurysm. Basilar artery: Unremarkable. No significant stenosis. No occlusion. No aneurysm. Vertebral arteries: Unremarkable as visualized. Dural venous sinuses: Unremarkable given phase of enhancement. Other: Arterial phase appearance of the brain parenchyma is unremarkable. Neck CT Angiogram: Internal carotid arteries: Unremarkable. No significant stenosis. No dissection or occlusion. Common carotid arteries: Unremarkable. No significant stenosis. No dissection or occlusion. External carotid arteries: Unremarkable. No occlusion. Vertebral arteries: Unremarkable. No significant stenosis. No dissection or occlusion. Aortic Arch and Mediastinum: Partially visualized aortic arch unremarkable without evidence of aneurysm. Origins of the great vessels unremarkable. Other: 2.2 cm left thyroid nodule. Arterial phase soft tissues of the neck and chest are otherwise unremarkable. IMPRESSION: No significant intracranial arterial abnormality is seen. No significant abnormality is seen within the arteries of the neck. 2.2 cm left thyroid nodule. Comment: Recommend nonemergent thyroid ultrasound for further evaluation of the left thyroid nodule. Comment: Final report is concordant with preliminary interpretation provided by [facility]. Any quantitative measurements of stenosis were performed using NASCET criteria. Dictated by: Burke Parker M.D. on 07/10/2024 at 7:36 Approved by: Burke Parker M.D. on 07/10/2024 at 7:50
--- NOTE | 2024-07-10 06:09 | DI.RAD.S_ITS ---
PROCEDURE: XR CHEST 1V INDICATIONS: chest tightness TECHNIQUE: One view of the chest was acquired. COMPARISON: [facility], CR, XR CHEST 1V, 05/30/2024, 13:05. FINDINGS: Surgical changes and devices: None. Lungs and pleura: Lungs are clear. No pleural effusions or pneumothorax. Mediastinum: Mediastinal contours appear normal. Heart size is normal. Bones and chest wall: No suspicious bony lesions. Overlying soft tissues appear unremarkable. IMPRESSION: No acute cardiopulmonary abnormality is seen. Dictated by: Burke Parker M.D. on 07/10/2024 at 7:33 Approved by: Burke Parker M.D. on 07/10/2024 at 7:35
--- NOTE | 2024-07-10 06:10 | DI.CT.S_ITS ---
PROCEDURE: CT HEAD/BRAIN WO CON INDICATIONS: headache, s/p C5/C6 injection TECHNIQUE: Noncontrast 4.5 mm thick angled axial sections acquired from the foramen magnum to the vertex, with coronal and sagittal reformats. For radiation dose reduction, the following was used: automated exposure control, adjustment of mA and/or kV according to patient size. COMPARISON: None. FINDINGS: Image quality: Diagnostic. CSF spaces: Basal cisterns are patent. No extra-axial fluid collections. Ventricles are normal in size and shape. Brain: No midline shift. No intracranial mass effect or hemorrhage. Zimmerman-white matter interface is normal. Skull and face: Calvarium and visualized facial bones are intact, without suspicious lesions. Sinuses: Visualized sinuses and mastoids are clear. IMPRESSION: No evidence acute intracranial process. Comment: Final report is concordant with preliminary interpretation provided by [facility]. Dictated by: Burke Parker M.D. on 07/10/2024 at 7:36 Approved by: Burke Parker M.D. on 07/10/2024 at 7:36
--- NOTE | 2024-07-10 06:13 | ED_ITS ---
HPI - Headache <Lee Arrieta, DO - Last Filed: 07/10/24 06:36> General Chief Complaint: Headache Stated Complaint: possible C6/C5 Injection complications,headaches Time Seen by Provider: 07/10/24 05:58 Mode of arrival: Ambulatory History of Present Illness HPI Narrative: 48-year-old female with a past medical history of hypertension cervical radiculopathy presenting from home for evaluation of headache. She states that yesterday at around 10:00 a.m. she had a C6-C5 injection for cervical radiculopathy, she states that after she had that she was having pressure to her arm as well as her head, however she states that throughout the day it progressed to a dull headache, she states that it has since spread to her whole head, she denies any visual disturbances she denies any true numbness weakness tingling above her baseline to her upper extremities, on exam NIH of 0. She also states like she feels like the pressure is starting to spread to her throat and chest and back, however she states that she does not have any true decreased sensation feels like it is more of a pressure. She states that she called the on-call doctor at the clinic that did her injections and was instructed to go to the emergency department for further evaluation treatment. She is not on any blood thinners she denies any other symptoms at this time Related Data Home Medications Medication Instructions Recorded Confirmed albuterol sulfate 90 mcg/actuation 2 puff inhalation Q6H PRN 12/05/22 09/18/23 aerosol inhaler Shortness Of Breath atenolol 50 mg tablet 25 mg PO BID 12/05/22 09/18/23 methocarbamol 500 mg tablet 500 mg PO TID 12/05/22 09/18/23 oxycodone-acetaminophen 5 mg-325 1 tab PO QID PRN Pain 12/05/22 09/18/23 mg tablet (Percocet) rosuvastatin 20 mg tablet 20 mg PO DAILY 12/05/22 09/18/23 ondansetron 4 mg disintegrating 4 mg PO Q6-8H PRN Nausea 06/01/23 09/18/23 tablet promethazine 25 mg tablet 25 mg PO Q8H PRN Nausea 06/01/23 09/18/23 Allergies Allergy/AdvReac Type Severity Reaction Status Date / Time Penicillins Allergy Severe Difficulty Verified 09/18/23 06:41 Breathing morphine Allergy Verified 09/18/23 06:41 Review of Systems <Lee DO Berny - Last Filed: 07/10/24 06:36> Review of Systems Narrative: General: Positive pressure to neck chest and back, Denies fever, chills, weight loss HEENT: Positive headache, eye drainage, eye irritation, head trauma, sore throat, voice change Cardiovascular: Denies any chest pain, palpitations, tachycardia Respiratory: Denies any shortness of breath, cough, wheeze, stridor GI/: Denies any abdominal pain, nausea, vomiting, diarrhea, bright red blood per rectum, melanotic stools, urinary frequency, urinary retention, dysuria, hematuria MSK: Denies any joint pain, muscle pains, swelling Skin: Denies any rashes, lesions, discoloration Neuro: Denies any headache, lightheadedness, dizziness, fainting, weakness Psych: Denies SI/HI Patient History <Lee Arrieta DO - Last Filed: 07/10/24 06:36> Medical History (Updated 07/10/24 @ 08:52 by Gala Chavez MD) Arrhythmia Concussion IBD (inflammatory bowel disease) Asthma Fibromyalgia Fluttering heart Obesity, Class II, BMI 35-39.9 PCOS (polycystic ovarian syndrome) Psoriasis Arthritis Renal artery aneurysm rupture Intractable nausea and vomiting Dysmenorrhea Abnormal uterine bleeding (AUB) Surgical History (Updated 09/11/23 @ 15:28 by Nadine Burgos RN) History of nasal surgery History of appendectomy Social History Smoking Status: Never smoker alcohol intake: never Smoking Status: Never smoker Exam <Lee Arrieta DO - Last Filed: 07/10/24 06:36> Narrative Exam Narrative: General: Cooperative, well-developed, not in acute distress HEENT: Normocephalic, atraumatic, PERRLA, normal sclera, eyelids normal Neck: Active full range of motion, atraumatic Chest: Normal to inspection, negative crepitus, no overlying erythema ecchymosis Respiratory: Normal respiratory effort, not in acute respiratory distress, clear to auscultation bilaterally negative cough, wheeze, tachypnea, rhonchi, rales Cardiology: Regular rate rhythm negative gallop, murmur, rubs GI/: No tenderness to palpation, soft, non rigid, normal to inspection, exam deferred MSK: Full active range of motion in all 4 extremities, atraumatic, no tenderness to palpation of any bony prominences Skin: No rashes or lesions noted Neuro: NIH of 0, no focal deficits, Alert awake oriented x3, moves all 4 extremities spontaneously, cranial nerves intact, able to answer all questions appropriately follows commands appropriately Psych: Cooperative, negative suicidal or homicidal ideations Initial Vital Signs Initial Vital Signs: Vital Signs Temperature 97 F L 07/10/24 06:09 Pulse Rate 95 H 07/10/24 06:09 Respiratory Rate 16 07/10/24 06:09 Blood Pressure 181/86 H 07/10/24 06:09 Pulse Oximetry 97 07/10/24 06:09 Oxygen Delivery Method Room Air 07/10/24 06:09 <Gala Chavez MD - Last Filed: 07/10/24 09:16> Initial Vital Signs Initial Vital Signs: Vital Signs Temperature 97 F L 07/10/24 06:09 Pulse Rate 95 H 07/10/24 06:09 Respiratory Rate 16 07/10/24 06:09 Blood Pressure 181/86 H 07/10/24 06:09 Pulse Oximetry 97 07/10/24 06:09 Oxygen Delivery Method Room Air 07/10/24 06:09 Course <Lee Arrieta DO - Last Filed: 07/10/24 06:36> Orders Ordered: ED Orders 07/10/24 06:09 CT angio head and neck Stat XR chest 1V Stat EKG-12 Lead Stat 07/10/24 06:10 CT head/brain wo con Stat 07/10/24 06:20 Complete Blood Count AUTO DIFF Stat Comprehensive Metabolic Panel Stat Lipase Stat MAG [Magnesium] Stat Prothrombin Time INR Stat Troponin & CK Cardiac Panel Stat Sodium Chloride (Normal Saline 0.9%) 1,000 mls @ 150 mls/hr IV CONT PRISCILA Last Admin: 07/10/24 06:34 Dose: 150 mls/hr Documented By: CHARAN Discontinued Medications Diphenhydramine HCl (Diphenhydramine 50 Mg/Ml Vial) 25 mg IV NOW ONE Stop: 07/10/24 06:10 Last Admin: 07/10/24 06:35 Dose: 25 mg Documented By: CHARAN Hydromorphone HCl (Hydromorphone 1 Mg Inj) 1 mg IV NOW ONE Stop: 07/10/24 08:53 Last Admin: 07/10/24 08:55 Dose: 1 mg Documented By: [facility] Metoclopramide HCl (Metoclopramide 10 Mg/2 Ml Inj) 10 mg IV NOW ONE Stop: 07/10/24 06:10 Last Admin: 07/10/24 06:35 Dose: 10 mg Documented By: CHARAN Vital Signs Vital signs: Vital Signs - 8 hr 07/10/24 06:09 07/10/24 06:29 07/10/24 06:30 Temperature 97 F L Pulse Rate 95 H 81 Respiratory Rate 16 20 Blood Pressure 181/86 H 154/73 H Pulse Oximetry 97 96 Oxygen Delivery Method Room Air Room Air 07/10/24 06:30 07/10/24 07:04 07/10/24 07:05 Temperature Pulse Rate 83 86 84 Respiratory Rate 19 20 Blood Pressure Pulse Oximetry 95 96 Oxygen Delivery Method Room Air 07/10/24 07:05 07/10/24 07:30 07/10/24 07:30 Temperature Pulse Rate 81 Respiratory Rate 26 H Blood Pressure 155/67 H 147/65 H Pulse Oximetry 94 Oxygen Delivery Method 07/10/24 08:00 07/10/24 08:00 Temperature Pulse Rate 82 Respiratory Rate 28 H Blood Pressure 151/70 H Pulse Oximetry 95 Oxygen Delivery Method <Gala Chavez MD - Last Filed: 07/10/24 09:16> Orders Ordered: ED Orders 07/10/24 06:09 CT angio head and neck Stat XR chest 1V Stat EKG-12 Lead Stat 07/10/24 06:10 CT head/brain wo con Stat 07/10/24 06:20 Complete Blood Count AUTO DIFF Stat Comprehensive Metabolic Panel Stat Lipase Stat MAG [Magnesium] Stat Prothrombin Time INR Stat Troponin & CK Cardiac Panel Stat Sodium Chloride (Normal Saline 0.9%) 1,000 mls @ 150 mls/hr IV CONT PRISCILA Last Admin: 07/10/24 06:34 Dose: 150 mls/hr Documented By: CHARAN Discontinued Medications Diphenhydramine HCl (Diphenhydramine 50 Mg/Ml Vial) 25 mg IV NOW ONE Stop: 07/10/24 06:10 Last Admin: 07/10/24 06:35 Dose: 25 mg Documented By: CHARAN Hydromorphone HCl (Hydromorphone 1 Mg Inj) 1 mg IV NOW ONE Stop: 07/10/24 08:53 Last Admin: 07/10/24 08:55 Dose: 1 mg Documented By: DENEEN Metoclopramide HCl (Metoclopramide 10 Mg/2 Ml Inj) 10 mg IV NOW ONE Stop: 07/10/24 06:10 Last Admin: 07/10/24 06:35 Dose: 10 mg Documented By: CHARAN Vital Signs Vital signs: Vital Signs - 8 hr 07/10/24 06:09 07/10/24 06:29 07/10/24 06:30 Temperature 97 F L Pulse Rate 95 H 81 Respiratory Rate 16 20 Blood Pressure 181/86 H 154/73 H Pulse Oximetry 97 96 Oxygen Delivery Method Room Air Room Air 07/10/24 06:30 07/10/24 07:04 07/10/24 07:05 Temperature Pulse Rate 83 86 84 Respiratory Rate 19 20 Blood Pressure Pulse Oximetry 95 96 Oxygen Delivery Method Room Air 07/10/24 07:05 07/10/24 07:30 07/10/24 07:30 Temperature Pulse Rate 81 Respiratory Rate 26 H Blood Pressure 155/67 H 147/65 H Pulse Oximetry 94 Oxygen Delivery Method 07/10/24 08:00 07/10/24 08:00 Temperature Pulse Rate 82 Respiratory Rate 28 H Blood Pressure 151/70 H Pulse Oximetry 95 Oxygen Delivery Method MDM - Headache <Lee Arrieta DO - Last Filed: 07/10/24 06:36> Differential Diagnosis Differential diagnosis: Likely migraine, headache and other (Postprocedure complication, ACS, pneumonia, electrolyte abnormality, CVA) Lab Data 07/10/24 06:20 07/10/24 06:20 Labs: Lab Results 07/10/24 Range/Units 06:20 WBC 12.1 H (4.5-11.0) X10^3/uL RBC 4.67 (4.0-5.2) X10^6/uL Hgb 13.7 (12.0-16.0) g/dL Hct 39.1 (36-46) % MCV 83.7 (80-100) fL MCH 29.3 (26-34) PG MCHC 34.9 (30-36) % RDW 13.1 (11.6-14.8) % Plt Count 334 (150-400) X10^3/uL Neut % (Auto) 83.0 H (50-75) % Lymph % (Auto) 11.5 L (25-40) % Beadle % (Auto) 4.9 (3-14) % Eos % (Auto) 0.0 L (2-4) % Baso % (Auto) 0.6 (0-2) % Neut # (Auto) 70217 H (8091-5166) /uL Lymph # (Auto) 1400 (3597-2063) /uL Beadle # (Auto) 600 (0-900) /uL Eos # (Auto) 0 (0-450) /uL Baso # (Auto) 100 (0-100) /uL PT 12.6 H (9.4-12.5) SECONDS INR 1.1 (0.9-1.3) Sodium 136 L (137-145) mmol/L Potassium 4.3 (3.4-5.1) mmol/L Chloride 103 (98-107) mmol/L Carbon Dioxide 23 (22-32) mmol/L BUN 17 (7-17) mg/dL Creatinine 0.84 (0.52-1.04) mg/dL Estimated GFR > 60 (>60) mL/min BUN/Creatinine Ratio 20.2 (6-22) Glucose 128 H (70-99) mg/dL Calcium 10.0 (8.4-10.2) mg/dL Magnesium 2.0 (1.6-2.3) mg/dL Total Bilirubin 0.4 (0.2-1.3) mg/dL AST 23 (14-36) IU/L ALT 21 (<35) IU/L Alkaline Phosphatase 79 (38-126) U/L Total Creatine Kinase 131 (30-135) U/L Troponin I < 0.012 (0.01-0.034) ng/mL Total Protein 8.0 (6.3-8.2) g/dL Albumin 4.8 (3.5-5.0) g/dL Globulin 3.2 (1.7-4.1) g/dL Albumin/Globulin Ratio 1.5 (1.0-2.8) Lipase 23 (23-300) U/L HCG, Quant Cancelled Point of Care Testing Test Results Negative ECG Data Interpretation: EKG interpreted by ED physician sinus 82 beats per minute QTC 457 normal axis no STEMI MDM Narrative Medical decision making narrative: 48-year-old female past medical history of hyperlipidemia hypertension presenting from home for evaluation of headache and pressure to neck chest and back. She states that yesterday she was at [place] and had a C5-C6 neck injection for known radiculopathy. She states that she has been having pressure tingling and weakness to her bilateral upper extremities left side worse than right, she states that she is at baseline in regards to this, she states that she was warned that she could have pressure to her left arm after the procedure, she states that immediately after the injection she did have pressure to her left arm as well as to the base of her head, however she states that as the day progressed she started developing a dull headache, she denies any visual deficits, she states that she did call the on-call number and was told to come to the ED for evaluation and treatment. On exam patient without any focal deficits. Patient did have lab work imaging EKG performed here in the emergency department 0700: Patient was signed out to Dr. chavez, patient pending imaging results, re-evaluation for final disposition <Gala Chavez MD - Last Filed: 07/10/24 09:16> Lab Data Labs: Lab Results 07/10/24 Range/Units 06:20 WBC 12.1 H (4.5-11.0) X10^3/uL RBC 4.67 (4.0-5.2) X10^6/uL Hgb 13.7 (12.0-16.0) g/dL Hct 39.1 (36-46) % MCV 83.7 (80-100) fL MCH 29.3 (26-34) PG MCHC 34.9 (30-36) % RDW 13.1 (11.6-14.8) % Plt Count 334 (150-400) X10^3/uL Neut % (Auto) 83.0 H (50-75) % Lymph % (Auto) 11.5 L (25-40) % Beadle % (Auto) 4.9 (3-14) % Eos % (Auto) 0.0 L (2-4) % Baso % (Auto) 0.6 (0-2) % Neut # (Auto) 41417 H (1420-5415) /uL Lymph # (Auto) 1400 (6373-1647) /uL Beadle # (Auto) 600 (0-900) /uL Eos # (Auto) 0 (0-450) /uL Baso # (Auto) 100 (0-100) /uL PT 12.6 H (9.4-12.5) SECONDS INR 1.1 (0.9-1.3) Sodium 136 L (137-145) mmol/L Potassium 4.3 (3.4-5.1) mmol/L Chloride 103 (98-107) mmol/L Carbon Dioxide 23 (22-32) mmol/L BUN 17 (7-17) mg/dL Creatinine 0.84 (0.52-1.04) mg/dL Estimated GFR > 60 (>60) mL/min BUN/Creatinine Ratio 20.2 (6-22) Glucose 128 H (70-99) mg/dL Calcium 10.0 (8.4-10.2) mg/dL Magnesium 2.0 (1.6-2.3) mg/dL Total Bilirubin 0.4 (0.2-1.3) mg/dL AST 23 (14-36) IU/L ALT 21 (<35) IU/L Alkaline Phosphatase 79 (38-126) U/L Total Creatine Kinase 131 (30-135) U/L Troponin I < 0.012 (0.01-0.034) ng/mL Total Protein 8.0 (6.3-8.2) g/dL Albumin 4.8 (3.5-5.0) g/dL Globulin 3.2 (1.7-4.1) g/dL Albumin/Globulin Ratio 1.5 (1.0-2.8) Lipase 23 (23-300) U/L HCG, Quant Cancelled Point of Care Testing Test Results Negative MDM Narrative Medical decision making narrative: 48-year-old female past medical history of hyperlipidemia hypertension presenting from home for evaluation of headache and pressure to neck chest and back. She states that yesterday she was at [place] and had a C5-C6 neck injection for known radiculopathy. She states that she has been having pressure tingling and weakness to her bilateral upper extremities left side worse than right, she states that she is at baseline in regards to this, she states that she was warned that she could have pressure to her left arm after the procedure, she states that immediately after the injection she did have pressure to her left arm as well as to the base of her head, however she states that as the day progressed she started developing a dull headache, she denies any visual deficits, she states that she did call the on-call number and was told to come to the ED for evaluation and treatment. On exam patient without any focal deficits. Patient did have lab work imaging EKG performed here in the emergency department 0700: Patient was signed out to Dr. chavez, patient pending imaging results, re-evaluation for final disposition 820 care is assumed, patient is independently evaluated chart reviewed. Labs reviewed: CBC shows mild leukocytosis at 12.1 with neutrophils at 83%. She did not receive steroid yesterday Chemistries are completely unremarkable Troponin is undetectable CT scan of the head shows no acute abnormality CT angiogram of the head and neck does not show any acute cranial abnormalities and no cervical vascular abnormality records available from [facility]. She did have fluoroscopically guided left C5-C6 trans foraminal epidural steroid injection. Treatment, she was given a L of fluid, Reglan and Benadryl to help with headache with no results whatsoever. Discussion: 48-year-old woman with left-sided C5 injection yesterday. This was not an epidural injection. With pain starting immediately, epidural abscess or hematoma far less likely. I suspect that the injection has worked its way up the facet joints which is causing all of her symptoms. She was complaining of chest heaviness and again, I suspect this is secondary to the injection as well in the lower cervical region. She does take fairly regular Percocet for severe menometrorrhagia and is not opioid naive. At this point I believe this is not a migraine headache, more cervicogenic. No suggestion of stroke, dissection of any vascular structures in the neck.We will treat with a mg of Dilaudid to see if we can get on top of the pain and then she will be discharged home. She does have migraine medication as well as additional pain medication does not need refills. Suspect as the volume of the injection is absorbed and the (presumed) steroid portion begins to be effective her pain will improve. She can follow up with her health education specialist as needed. There was no additional imaging or workup required at this time she is safe for discharge Discharge Plan Departure Patient Disposition: Home Clinical Impression: Headache Qualifiers: Headache type: unspecified Headache chronicity pattern: unspecified pattern I ntractability: not intractable Qualified Code(s): R51.9 - Headache, unspecified Instructions: DI for Headache Activity Restrictions/Additional Instructions: thank you for coming in today I believe all of your symptoms are related to the injection you received in your neck yesterday you do not describe an epidural injection so I believe the concern for an epidural blood clot or infection is very low. The heaviness and sensation descriptions or describing are all along the area of your body that your nerves from your cervical spine cover. I suspect that as that medicine becomes absorbed and the actual volume of the medicine injected becomes absorbed, the symptoms are going to improve. I do not believe this is a migraine headache. Migraine treatment did not work and as you mentioned, you are not having your typical symptoms of migraine. You were given a mg of Dilaudid in the emergency room to get on top of the pain. You do have pain medications available at home to use. This should improve over the next 24 hours. If you are continuing to worsen you do need to follow up with your spine surgeon that did the cervical injection Prescriptions: No Action promethazine 25 mg tablet 25 mg PO Q8H PRN (Reason: Nausea) ondansetron 4 mg tablet,disintegrating 4 mg PO Q6-8H PRN (Reason: Nausea) methocarbamol 500 mg tablet 500 mg PO TID atenolol 50 mg tablet 25 mg PO BID oxycodone-acetaminophen [Percocet] 5-325 mg tablet 1 tab PO QID PRN (Reason: Pain) rosuvastatin 20 mg tablet 20 mg PO DAILY albuterol sulfate 90 mcg/actuation HFA aerosol inhaler 2 puff inhalation Q6H PRN (Reason: Shortness Of Breath) Referrals: Goran Villalobos MD [Primary Care Provider] - Stand Alone Forms: Patient Portal/API/Survey
--- NOTE | 2024-07-10 06:30 | EKG_ITS ---
[address] [address] Test Date: 2024-07-10 Pat Name: Kari Mcfadden Department: [facility] Room: Gender: Female [employer] Stenographer: LISA ARAGON : 1975 Requested By: Order Number: [id number] Reading MD: Lee Rahman Measurements Intervals Bryant Rate: 82 P: 44 DE: 170 QRS: 25 QRSD: 94 T: 18 QT: 392 QTc: 457 Interpretive Statements Normal sinus rhythm Electronically Signed On 07-12-2024 16:22:49 PDT by Lee Rahman
[2024-07-10 06:32] LABS: Add Manual Diff / Slide Review NO; Basophils Absolute Auto 100 /uL (0-100); Basophils Percent Auto 0.6 % (0-2); Eosinophils Absolute Auto 0 /uL (0-450); Hematocrit 39.1 % (36-46); Hemoglobin 13.7 g/dL (12.0-16.0); Lymphocytes Absolute Auto 1400 /uL (1100-4500); Lymphocytes Percent Auto 11.5 % (25-40); Mean Corpuscular HGB Conc 34.9 % (30-36); Mean Corpuscular Hemoglobin 29.3 PG (26-34); Mean Corpuscular Volume 83.7 fL (80-100); Monocytes Absolute Auto 600 /uL (0-900); Monocytes Percent Auto 4.9 % (3-14); Neutrophils Absolute Auto 10000 /uL (1500-7000); Platelet Count 334 X10^3/uL (150-400); Red Blood Cell Count 4.67 X10^6/uL (4.0-5.2); Red Cell Distribution Width 13.1 % (11.6-14.8); White Blood Cell Count 12.1 X10^3/uL (4.5-11.0)
[2024-07-10] MEDS: SODIUM CHLORIDE 0.9% 1,000 ML 150 ML IV (06:34)
[2024-07-10] MEDS: METOCLOPRAMIDE 10 MG/2 ML INJ IV (06:35)
[2024-07-10] MEDS: diphenhydrAMINE 50 MG/ML VIAL 25 MG IV (06:35)
[2024-07-10 06:41] LABS: INR 1.1 (0.9-1.3); Prothrombin Time 12.6 SECONDS (9.4-12.5)
[2024-07-10 06:46] LABS: Alanine Aminotransferase 21 IU/L (<35); Albumin 4.8 g/dL (3.5-5.0); Albumin Globulin Ratio 1.5 (1.0-2.8); Alkaline Phosphatase 79 U/L (38-126); Aspartate Aminotransferase 23 IU/L (14-36); BUN Creatinine Ratio 20.2 (6-22); Bilirubin Total 0.4 mg/dL (0.2-1.3); Blood Urea Nitrogen 17 mg/dL (7-17); Carbon Dioxide 23 mmol/L (22-32); Chloride 103 mmol/L (98-107); Creatine Kinase 131 U/L (30-135); Estimated Glomerular Filt Rate > 60 mL/min (>60); Globulin 3.2 g/dL (1.7-4.1); Glucose 128 mg/dL (70-99); HEMOLYSIS < 15 (0-50); Lipase 23 U/L (23-300); Potassium 4.3 mmol/L (3.4-5.1); Sodium 136 mmol/L (137-145)
--- NOTE | 2024-07-10 06:50 | PC.NURSE ---
Pt to imaging via ED stretcher with corrosion technician
[2024-07-10 06:58] LABS: Troponin I < 0.012 ng/mL (0.01-0.034)
[2024-07-10] MEDS: HYDROMORPHONE 1 MG INJ IV (08:55)
== END 2024-07-10 09:33 | disposition home or self-care (01) ==
PROVIDERS: Student in an Organized Health Care Education/Training Program; Emergency Provider Emergency Medicine; PCP Internal Medicine
DX: T80.89XA Other complications following infusion, transfusion and therapeutic injection, initial encounter (principal); R51.9 Headache, unspecified
CPT/HCPCS: 36415; 70450; 70496; 70498; 71045; 80053; 81025; 82550; 83690; 83735; 84484; 85025; 85610; 93005; 96361; 96374; 96375; 99284; J1171; J1200; J2765; Q9967

== ENCOUNTER → 2024-10-23 19:40 | Outpatient (CLI) | payer MEDICARE, MEDICAID, SELFPAY ==
--- NOTE | 2024-10-23 19:43 | DI.MRI.S_ITS ---
PROCEDURE: MR KNEE LT WO CON INDICATIONS: internal derangement of left knee TECHNIQUE: Noncontrast sagittal PD fast spin echo and T2 fast spin echo with fat saturation, sagittal 3-D FLASH with fat saturation; coronal T1 spin echo and PD fast spin echo with fat saturation, and axial PD fast spin echo with fat saturation through the knee. COMPARISON: None. FINDINGS: Image quality: Excellent. Menisci: Complex oblique tear involving posterior horn of medial meniscus is seen extending to superior articulating surface. There is no lateral meniscal tear. Cruciate ligaments: The anterior cruciate ligament appears thickened. The posterior cruciate ligament is intact. Medial structures: The medial collateral ligament appears thickened with surrounding soft tissue edema near its femoral insertion. Visualized portions of the pes anserinus tendons appear normal. No abnormal bursal fluid. Lateral structures: The lateral collateral ligament is thickened with intrasubstance T2 hyperintense signal at its femoral insertion. The long and short heads of the biceps femoris tendon appear intact. Low-grade partial-thickness tear involving the popliteus tendon extending to musculotendinous junction is seen. Iliotibial band appears normal. Anterior structures: The quadriceps and patellar tendons appear intact. Patellar alignment is normal. Bones and cartilage: No bone marrow contusions or fractures. Low-grade chondromalacia in medial femoral tibial compartment and lateral portion of patellofemoral compartment is seen. Joint space: There is small to moderate knee joint fluid. No Phillips's cyst. Normal appearing synovial plicae are incidentally noted. IMPRESSION: 1. Complex oblique tear involving posterior horn of medial meniscus extending to superior articulating surface. No lateral meniscal tear. 2. The ACL is thickened suggestive of low-grade ACL sprain. No ACL rupture. The PCL is intact. 3. Low-grade proximal MCL and LCL sprain/intrasubstance partial-thickness tear near their femoral insertions. Low-grade partial-thickness tear involving popliteus tendon extending to musculotendinous junction. 4. Low-grade chondromalacia in medial femoral tibial compartment and lateral portion of patellofemoral compartment. No fracture or dislocation. Small to moderate joint effusion, no loose bodies. Dictated by: Enrico Espino M.D. on 10/24/2024 at 9:31 Approved by: Enrico Espino M.D. on 10/24/2024 at 9:53
== END ==
PROVIDERS: Visit Provider Orthopaedic Surgery
DX: S83.232A Complex tear of medial meniscus, current injury, left knee, initial encounter (principal); M23.92 Unspecified internal derangement of left knee; S83.412A Sprain of medial collateral ligament of left knee, initial encounter; S83.422A Sprain of lateral collateral ligament of left knee, initial encounter; M22.42 Chondromalacia patellae, left knee; M25.462 Effusion, left knee
CPT/HCPCS: 73721

== ENCOUNTER 2024-11-25 07:38 | Day surgery (SDC) | payer MEDICARE, MEDICAID, SELFPAY ==
[2024-11-17 14:22] VITALS: BMI 44.8
[2024-11-25 08:10] VITALS: BP 156/88; PULSE 75; RESP 18; TEMP 36.4; O2SAT 97
[2024-11-25] MEDS: LACTATED RINGERS 1,000 ML 42 ML IV (08:26)
[2024-11-25] MEDS: ACETAMINOPHEN IV 1,000 MG/100 ML VIAL 400 MG IV (08:27)
[2024-11-25] MEDS: ALBUTEROL/IPRATROPIUM 3 ML AMPUL INH (08:28)
--- NOTE | 2024-11-25 08:57 | PM.PREOP ---
Pre-operative Note COVID-19 COVID-19 status: Not tested Interval Note History & Physical reviewed/Exam performed by Physician: Yes Changes to H&P: No
--- NOTE | 2024-11-25 08:57 | PM.HP.IH.1 ---
History of Present Illness History of Present Illness Chief complaint: Left Carpal Tunnel Release Narrative: Clinic Notes: Chief Complaint: bilateral hand numbness Notes Clinic Notes: 48 yo LHD f with bilateral (L > R) upper extremity numbness, tingling and paresthesias with weakness. This has been occurring for over 2 years and has worsened over the last 6 months. She states her whole hand goes numb within minutes of elbow flexion with fishing on the left and it takes a little longer on the right side. She has had a ncs/emg in the past. She has not had surgery. She does have degenerative changes at her c spine that and has been evaluated by a neurosurgeon who indicated that she is not a candidate for spine surgery. She did have a injection in her neck which cased intracranial hypertension. PE: wd/wn/nad Neck exam: nttp; 30deg of SB to r and L. Neg spurlings b/l. b/l UE: skin intact. Full range of motion of elbows and wrists. Sensation decreased to the median and ulnar nerves on the left. Pos Froment sign on the left. 5/5 epl/fpl/io bilaterally. Neg Wartenburg sign. Pos tinel at the elbows bilaterally. Positive at the wrist. Pos elbow flexion test and Pos phalen bilaterally Neg Adson test. 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 I also reviewed a report of her MRI of her neck which demonstrated mild foraminal stenosis at C5-6 with endplate osteophytes. [facility] Medical History (Updated 11/17/24 @ 14:50 by Nadine Burgos RN) Abnormal uterine bleeding (AUB) Anesthesia complication Arrhythmia Arthritis Asthma BMI 40.0-44.9, adult Concussion Dysmenorrhea Fibromyalgia Fluttering heart IBD (inflammatory bowel disease) Intractable nausea and vomiting PCOS (polycystic ovarian syndrome) Psoriasis Renal artery aneurysm rupture Surgical History (Updated 11/17/24 @ 14:29 by Nadine Burgos RN) History of appendectomy History of nasal surgery Hx of arthroscopy of left knee (08/06/24) Social History Smoking Status: Never smoker alcohol intake: never Meds Home Medications and Allergies Home Medications ?Medication ?Instructions ?Recorded ?Confirmed ?Type albuterol sulfate 90 mcg/actuation 2 puff inhalation Q6H PRN 12/05/22 11/25/24 History aerosol inhaler Shortness Of Breath atenolol 50 mg tablet 25 mg PO BID 12/05/22 11/25/24 History methocarbamol 500 mg tablet 500 mg PO TID 12/05/22 11/25/24 History oxycodone-acetaminophen 5 mg-325 1 tab PO QID PRN Pain 12/05/22 11/25/24 History mg tablet (Percocet) rosuvastatin 20 mg tablet 20 mg PO DAILY 12/05/22 11/25/24 History ondansetron 4 mg disintegrating 4 mg PO Q6-8H PRN Nausea 06/01/23 11/25/24 History tablet promethazine 25 mg tablet 25 mg PO Q8H PRN Nausea 06/01/23 11/25/24 History ondansetron 4 mg disintegrating 4 mg PO Q8H PRN nausea and 11/24/24 11/25/24 Rx tablet vomiting #10 tabs furosemide 20 mg tablet 20 mg PO DAILY 11/25/24 11/25/24 History haloperidol 5 mg tablet 5 mg PO DAILY PRN vomiting 11/25/24 11/25/24 History lorazepam 1 mg tablet 1 mg PO DAILY PRN anxiety 11/25/24 11/25/24 History Allergies Allergy/AdvReac Type Severity Reaction Status Date / Time Penicillins Allergy Severe Difficulty Verified 11/25/24 08:22 Breathing morphine Allergy Verified 11/25/24 08:22 midazolam (From Versed) AdvReac Agitated Verified 11/25/24 08:22 Exam Vital Signs (past 8 hours): - 11/25/24 08:10 Temperature 97.6 F Pulse Rate 75 Respiratory Rate 18 Blood Pressure 156/88 H Pulse Oximetry 97 Oxygen Delivery Method Room Air Oxygen Delivery Method Room Air Objective Labs Labs: Laboratory Results - last 24 hr 11/25/24 08:09 POC Whole Bld Glucose 96 Assessment & Plan Assessment and plan (1) Carpal tunnel syndrome: Qualifiers: Laterality: bilateral Qualified Code(s): G56.03 - Carpal tunnel syndrome, bilateral upper limbs Status: Acute (2) Cubital tunnel syndrome: Qualifiers: Laterality: bilateral Qualified Code(s): G56.23 - Lesion of ulnar nerve, bilateral upper limbs Status: Acute Plan I discussed the risks, benefits and alternatives of surgical versus nonsurgical treatment with the patient and her mother I discussed the risks of surgery to include but not limited to damage to arteries, veins, nerves, need for additional surgery, risks of his infection risks of incomplete regression of numbness tingling and paresthesias. She understands all the risks and wishes to proceed with a left cubital and carpal tunnel release and all other indicated procedures Time-Based Coding :: [TOTAL MINUTES] spent with patient and on the chart (including review of chart, obtaining history, exam, reviewing outside data, placing orders, documenting exam and treatment plan, and counseling patient) on [DATE]. [employer] Document charge(s): No
[2024-11-25] MEDS: APREPITANT 40 MG CAPSULE PO (09:21)
--- NOTE | 2024-11-25 09:55 | SUR.OPER ---
Supine on padded OR bed, head on pillow and elevated per anesthesia, non operative arm secured on padded arm boards at <90 degrees abduction, operative arm on padded arm board, legs uncrossed, safety belt at thigh, tape over blanket over lower legs. Final position approved by surgeon. All pressure points padded and protected.
[2024-11-25 10:41] VITALS: BP 139/73; PULSE 80; RESP 16; TEMP 36.3; O2SAT 98
[2024-11-25 10:50] VITALS: BP 156/92; PULSE 78; RESP 16; O2SAT 99
[2024-11-25] MEDS: hydrOXYzine 50 MG/ML INJ 25 MG IM (10:52)
[2024-11-25] MEDS: ONDANSETRON 4 MG/2 ML INJ IV (10:53)
--- NOTE | 2024-11-25 10:57 | PM.OP.1 ---
Operative Date/Time/Diagnoses Date of procedure: 11/25/24 Time of procedure: 09:51 Pre-op diagnosis: ?Left cubital tunnel syndrome and left Carpal Tunnel Syndrome Post-op diagnosis: same Procedure & Clinicians Procedure: OPen cubital and carpal tunnel release Same procedure(s) as scheduled: Yes Surgeon: Noelle Guillory Assisted?: No Anesthesia Type: General Operative Notes Findings: Compressed ulnar and median nerves. Anconeus epitrochlearis. Closure Type: primary Specimen(s): none sent Applied: none Estimated Blood Loss (mL): 5 Blood products transfused: none Tourniquet time (min): 38 Procedure in detail: Preoperative diagnosis: ?Left cubital tunnel syndrome and left Carpal Tunnel Syndrome Procedure performed: ?1) Carpal Tunnel Release, Open 2) open cubital tunnel release Postoperative diagnosis: Same Primary Surgeon: Noelle Guillory, DO Anesthesia: ?General EBL: 5 ml Tourniquet: 38 minutes @ 200 mmHg Indication For Surgery: Patient presented with signs and symptoms of carpal tunnel and cubital tunnel syndrome.? Conservative treatment did not result in adequate symptom improvement. The risks, benefits, and alternatives were discussed. Risks include pain, bleeding, infection, damage to nearby structures, pillar pain, wound healing complications, thumb weakness, numbness, lack of symptom relief, need for further surgery, DVT, PE, stroke, and . Written consent was obtained. Operative Findings: Thickened transverse carpal ligament was released.? No carpal tunnel masses. Procedure in Detail: The patient was met in the pre-operative hold area. Consent was verified and operative extremity was signed. The patient then met with anesthesia and was brought back to the operating room. The patient was placed supine on the operating table. Anesthetic was administered. The extremity was then prepped and draped in the usual sterile fashion. A timeout was performed per protocol. An 8 cm incision was made at the medial aspect of the elbow centered between the medial epicondyle and olecranon.? Dissection was taken down to the cubital tunnel and there was an overlying anconeus epitrochlearis muscle the ulnar nerve was exposed and the cubital was released dissection was taken up proximally and to ensure that the ulnar nerve was completely released proximally and distally the nerve was traced into the flexor carpi ulnaris muscle belly the overlying fascia was released and I ensured that the nerve was free distally as well.? After complete release of the ulnar nerve I then ranged the elbow with flexion and extension and the nerve did not sublux. A 3cm longitudinal incision was made in line with the ulnar border of the ring finger starting at Odom's Cardinal line distally. This was just radial to the hook of the hamate. Sharp dissection was brought down through the palmar fascia. Retractors were placed. The transverse carpal ligament was identified and a knife was used to incise it longitudinally until fat was seen distally in the palm. Tenotomy scissors were then used to create a pocket just superficial to the transverse carpal ligament and a freer was placed. The scissors were then placed deep to the ligament to bluntly separate the contents of the canal from ligament. I then pointed the tips of the scissors ulnarly and completed the release 2 cm into the antebrachial fascia. A freer elevator was used to confirm complete release both proximally and distally. The wound was then irrigated copiously and closed with 4-0 nylon in a horizontal mattress configuration. The elbow incision was closed with 2-0 Vicryl and 3-0 Monocryl.? A sterile dressing was applied consisting of Xeroform over the carpal tunnel incision and Steri-Strips were used over the medial elbow incision next plain gauze was used as well as sterile Webril and a posterior splint was placed. at the end of the case 20 cc 0.25% Marcaine plain was injected into the incision sites.? The patient was awoken and taken to the PACU in stable condition.? All counts were correct at the end of the case. ? Complications: none Post-operative Condition: stable Disposition: PACU
[2024-11-25 10:58] VITALS: BP 153/81; PULSE 72; RESP 16; O2SAT 98
== END 2024-11-25 11:29 | disposition home or self-care (01) ==
PROVIDERS: Referring Provider Orthopaedic Surgery; Visit Provider Orthopaedic Surgery
PROC: (CPT 64721; principal; 2024-11-25 09:15)
DX: G56.22 Lesion of ulnar nerve, left upper limb (principal); G56.03 Carpal tunnel syndrome, bilateral upper limbs
CPT/HCPCS: 64721; 64718; 82962; J0131; J0689; J1100; J1171; J1885; J2405; J2704; J3010; J3410; J7120; J8501

== ENCOUNTER → 2024-12-18 07:47 | Outpatient (CLI) | payer MEDICARE, MEDICAID, SELFPAY | LOC: PHYS 07:49 | PROVIDERS: Referring Provider Orthopaedic Surgery; Visit Provider Orthopaedic Surgery | DX: G56.03 Carpal tunnel syndrome, bilateral upper limbs (principal); G56.23 Lesion of ulnar nerve, bilateral upper limbs | CPT/HCPCS: 95886; 95909 ==